=== PATIENT | male | born 1995 | race Two or more races ===

== ENCOUNTER 2019-04-30 04:44 | Emergency (ER) | payer OTHER ==
[~2019-04-30] VITALS: Ht 188 cm; Wt 90.7 kg
[2019-04-30] MEDS ORDERED: SODIUM CHLORIDE 0.9% 1000ML 1,000 ML IV STA (04:54)
[2019-04-30] MEDS ORDERED: HYDROMORPHONE 2MG/ML 2 MG/ML ML IV ONE (05:00)
[2019-04-30] MEDS ORDERED: FAMOTIDINE 20 MG/2 ML VIAL IV ONE (05:00)
[2019-04-30] MEDS ORDERED: ONDANSETRON HCL INJ 2MG/ML 2ML 2 MG/ML VIAL IV ONE (05:00)
[2019-04-30 05:29] LABS: BASOPHILS % 0.1 % (0.0-1.0); EOSINOPHILS # (AUTO) 0.1 (0.0-0.4); EOSINOPHILS % 0.7 % (0.0-6.0); HEMATOCRIT 42.8 % (38.2-49.6); HEMOGLOBIN 14.1 g/dL (14.0-18.0); LYMPHOCYTES % 26.1 % (18.0-39.1); MEAN CORPUSCULAR HEMOGLOBIN 28.4 pg (28-32); MEAN CORPUSCULAR HGB CONC 32.9 g/dL (31-35); MEAN CORPUSCULAR VOLUME 86.1 fL (81-99); MONOCYTES # (AUTO) 0.5 (0.2-0.8); MONOCYTES % 5.9 % (4.4-11.3); NEUTROPHILS # (AUTO) 5.1 (2.1-6.9); NEUTROPHILS % 66.9 % (38.7-80.0); PLATELET COUNT 188 x10e3/uL (140-360); RED BLOOD COUNT 4.97 x10e6/uL (4.3-5.7); RED CELL DISTRIBUTION WIDTH 12.6 % (11.7-14.4)
[2019-04-30 05:44] LABS: ALANINE AMINOTRANSFERASE 26 IU/L (0-55); ALBUMIN 4.3 g/dL (3.5-5.0); ALBUMIN/GLOBULIN RATIO 1.3 (0.8-2.0); ALKALINE PHOSPHATASE 44 IU/L (40-150); ANION GAP 12.1 mmol/L (8-16); BLOOD UREA NITROGEN 24 mg/dL (7-26); BUN/CREATININE RATIO 23 (6-25); CALCIUM 9.6 mg/dL (8.4-10.2); CARBON DIOXIDE 25 mmol/L (22-29); CHLORIDE 104 mmol/L (98-107); CREATININE, SERUM 1.03 mg/dL (0.72-1.25); EST GLOMERULAR FILTRATION RATE > 60 ML/MIN (60-); GLUCOSE 98 mg/dL (74-118); POTASSIUM 4.1 mmol/L (3.5-5.1); SODIUM 137 mmol/L (136-145)
--- NOTE | 2019-04-30 05:45 | NUR ---
DR BOYKIN IN ROOM TO TALK WITH PT ABOUT TRANSFER TO ANOTHER FACILITY; PT DOES NOT WANT TO BE TRANSFERED PT STATES "I HAVE CLASSES AND I DONT WANT TO MISS; DR BOYKIN EXPLAINED TO PT ABOUT RISKS OF NOT BEING TRANSFERED; PT UNDERSTANDS RISKS AND STILL WANTS TO LEAVE; PT STATES "IF IT GETS BACK, I WILL COME BACK"
[2019-04-30] MEDS ORDERED: BUPIVACAINE LIPOSOME/PF 266 MG/20 ML IJ ONE (17:20)
== END 2019-04-30 07:10 | disposition home or self-care (01) ==
LOC: ER 04:44
DX: T21.25XA Burn of second degree of buttock, initial encounter (principal); T21.26XA Burn of second degree of male genital region, initial encounter; T31.0 Burns involving less than 10% of body surface; X10.0XXA Contact with hot drinks, initial encounter; Y92.008 Other place in unspecified non-institutional (private) residence as the place of occurrence of the external cause
CPT/HCPCS: 16020; 36415; 80053; 85025; 99283; J1170; J2405; J7030